=== PATIENT | female | born 1955 | race Caucasian/White ===

== ENCOUNTER 2018-01-24 18:24 | Emergency (ER) | payer OTHER, SELFPAY ==
[~2018-01-24 18:24] MED LIST: ADV250 IH; CLON0.1T PO; FAMO-136 PO; LOSA50TA37 PO; METO2.5T2 PO; VERA120C2 PO
[2018-01-24 18:42] LABS: BASOPHILS % (AUTO) 0.6 % (0.0-5.0); EOSINOPHILS % (AUTO) 2.4 % (0.0-8.0); HEMATOCRIT 38.3 % (36-48); LYMPHOCYTES % (AUTO) 27.8 % (21.0-51.0); MEAN CORPUSCULAR HEMOGLOBIN 29.9 pg (27.0-33.0); MEAN CORPUSCULAR HGB CONC 34.4 g/dL (32.0-36.0); MEAN CORPUSCULAR VOLUME 86.8 fL (79-99); MONOCYTES % (AUTO) 7.4 % (3.0-13.0); NEUTROPHILS % (AUTO) 61.8 % (40.0-77.0); PLATELET COUNT (AUTO) 265 K/uL (130-400); RED BLOOD CELL COUNT(AUTO) 4.42 MIL/uL (4.00-5.50); RED CELL DISTRIBUTION WIDTH 14.8 % (11.0-15.5); WHITE BLOOD COUNT (AUTO) 8.6 K/uL (4.8-10.8)
[2018-01-24] MEDS ORDERED: ASPIRIN 325 MG TABLET ONE (18:43)
[2018-01-24 18:53] LABS: PARTIAL THROMBOPLASTIN TIME 27.6 SEC (26.3-35.5); POTASSIUM 3.9 mmol/L (3.5-5.1); PROTHROMBIN TIME 10.5 SEC (9.6-11.6)
[2018-01-24 19:07] LABS: ALBUMIN 3.7 g/dL (3.5-5.0); BILIRUBIN,TOTAL 0.6 mg/dL (0.2-1.0); CREATINE KINASE MB 0.6 ng/mL (0.5-3.6); TOTAL PROTEIN, SERUM 7.6 g/dL (6.0-8.3)
[2018-01-24] MEDS ORDERED: DIAZEPAM 5 MG TABLET ONE (19:45)
[2018-01-24] MEDS ORDERED: ACETAMINOPHEN EXTRA STRENGTH 500 MG TABLET ONE (20:15)
== END 2018-01-24 23:19 | disposition home or self-care (01) ==
LOC: EDH 18:24
DX: R07.9 Chest pain, unspecified (principal); I10 Essential (primary) hypertension; E78.5 Hyperlipidemia, unspecified; Z88.2 Allergy status to sulfonamides
CPT/HCPCS: 36415; 71045; 80053; 82550; 82553; 83880; 84484; 85025; 85610; 85730; 93005

== ENCOUNTER → 2020-10-02 | Outpatient (CLI) | payer OTHER ==
[~2020-10-02] MED LIST changes: -LOSA50TA37 PO; +LOSA50TA64 PO
== END | disposition home or self-care (01) ==
LOC: RAH 13:23
PROVIDERS: ATTEND Nurse Practitioner Adult Health
DX: Z12.31 Encounter for screening mammogram for malignant neoplasm of breast (principal)
CPT/HCPCS: 77067

== ENCOUNTER → 2020-11-07 | Outpatient (CLI) | payer OTHER | END | disposition home or self-care (01) | LOC: RAH 09:48 | PROVIDERS: ATTEND Nurse Practitioner Adult Health | DX: R92.2 Inconclusive mammogram (principal) | CPT/HCPCS: 76641; 77065 ==

== ENCOUNTER 2021-04-19 02:20 | Inpatient (IN) | payer OTHER ==
[~2021-04-19] VITALS: Ht 177.8 cm; Wt 125.7 kg
[2021-04-19] VITALS (7 sets, daily range): BP systolic 111–148; BP diastolic 64–77
[2021-04-19] MEDS ORDERED: IPRATROPIUM/ALBUTEROL SULFATE 3 ML SOLUTION IH ONE ×2 (03:00→03:01)
[2021-04-19] MEDS ORDERED: SOLU-MEDROL 125MG VIAL ONE (03:59)
[2021-04-19] MEDS ORDERED: CEFTRIAXONE 1G VIAL IVP ONE (04:00)
[2021-04-19] MEDS ORDERED: SOLU-MEDROL 125MG VIAL IVP ONE (04:00)
[2021-04-19] MEDS ORDERED: 0.9% NACL 250ML IVPB ONE (04:00)
[2021-04-19] MEDS ORDERED: AZITHROMYCIN 500MG+NS 250ML 250 ML IV ONE ×2 (04:00→04:30)
[2021-04-19] MEDS ORDERED: AZITHROMYCIN 500MG VIAL IVPB ONE (04:00)
[2021-04-19] MEDS ORDERED: CEFTRIAXONE 1G VIAL ONE (04:00)
[2021-04-19 04:19] LABS: ABG BASE EXCESS 1.4 mmol/L (-2.0-3.0); ABG HCO3 25.3 mmol/L (21.0-28.0); ABG OXYGEN SATURATION 94.5 % (95.0-99.0); ABG PCO2 38 mmHg (32-45)
[2021-04-19] MEDS ORDERED: DiphenhydrAMINE HCL 50 MG/ML VIAL IV ONE (04:30)
[2021-04-19] MEDS ORDERED: ALBUTEROL 0.083% 2.5 MG/3 ML INH IH ONE (04:30)
[2021-04-19 04:46] LABS: BASOPHILS % (AUTO) 0.3 % (0.0-5.0); EOSINOPHILS % (AUTO) 1.5 % (0.0-8.0); HEMATOCRIT 38.5 % (36-48); LYMPHOCYTES % (AUTO) 5.7 % (21.0-51.0); MEAN CORPUSCULAR HEMOGLOBIN 29.5 pg (27.0-33.0); MEAN CORPUSCULAR HGB CONC 32.7 g/dL (32.0-36.0); MEAN CORPUSCULAR VOLUME 90.2 fL (79-99); NEUTROPHILS % (AUTO) 90.1 % (40.0-77.0); PLATELET COUNT (AUTO) 288 K/uL (130-400); RED BLOOD CELL COUNT(AUTO) 4.27 MIL/uL (4.00-5.50); RED CELL DISTRIBUTION WIDTH 14.6 % (11.0-15.5); WHITE BLOOD COUNT (AUTO) 11.3 K/uL (4.8-10.8)
[2021-04-19 04:55] LABS: APPEARANCE,URINE Clear (CLEAR); BILIRUBIN,URINE Negative (NEGATIVE); COLOR,URINE Yellow (YELLOW); GLUCOSE, URINE (UA) Negative (NEGATIVE); KETONES,URINE Negative (NEGATIVE); LEUKOCYTE ESTERASE ,URINE Negative (NEGATIVE); NITRATE,URINE Negative (NEGATIVE); OCCULT BLOOD,URINE Negative (NEGATIVE); PROTEIN,URINE Negative (NEGATIVE); UROBILINOGEN,URINE 0.2 mg/dL (0.2-1.0)
[2021-04-19] MEDS ORDERED: OLME40TA18 PO (05:13)
[2021-04-19] MEDS ORDERED: VITAD50000 PO (05:13)
[2021-04-19] MEDS ORDERED: OMEP40CA21 PO (05:13)
[2021-04-19] MEDS ORDERED: HYDR-3420 PO (05:13)
[2021-04-19] MEDS ORDERED: PROG200C11 PO (05:13)
[2021-04-19] MEDS ORDERED: METO-408 PO (05:13)
[2021-04-19] MEDS ORDERED: BACL10TA PO (05:13)
[2021-04-19 05:22] LABS: ALBUMIN 3.4 g/dL (3.5-5.0); CREATININE 0.9 mg/dL (0.5-1.5); POTASSIUM 4.9 mmol/L (3.5-5.1)
[2021-04-19] MEDS ORDERED: ACETAMINOPHEN 325 MG TAB PO PRN ×2 (05:30)
[2021-04-19] MEDS ORDERED: ONDANSETRON 4MG INJ IV PRN (05:30)
[2021-04-19] MEDS: SOLU-MEDROL 125MG VIAL IVP SCH ×2 (05:30→12:37)
[2021-04-19] MEDS ORDERED: MAGNESIUM 2GM PREMIX 50ML 50 ML IV SCH (05:30)
[2021-04-19] MEDS ORDERED: 0.9% NACL 250ML IVPB SCH (05:30)
[2021-04-19 06:30] LABS: BILIRUBIN,TOTAL 0.5 mg/dL (0.2-1.0)
[2021-04-19] MEDS: IPRATROPIUM/ALBUTEROL SULFATE 3 ML SOLUTION IH SCH ×6 (06:33→22:00)
[2021-04-19 06:40] LABS: CRP QUANTITATIVE 26.7 mg/L (0.00-9.0); THYROID STIMULATING HORMONE 0.8 uIU/mL (0.36-3.74)
[2021-04-19] MEDS: NITROGLYCERIN 0.4 MG SL TAB SL PRN ×2 (08:25→11:03)
[2021-04-19] MEDS ORDERED: FAMOTIDINE 20MG TAB PO SCH (09:00)
[2021-04-19] MEDS: ENOXAPARIN SODIUM 40 MG/0.4 ML SYRINGE SQ SCH (09:43)
[2021-04-19] MEDS ORDERED: METOPROLOL SUCCINATE 50 MG TAB.SR.24H PO ONE (11:43)
[2021-04-19] MEDS: METOPROLOL SUCCINATE 50 MG TAB.SR.24H PO SCH (12:25)
[2021-04-19] MEDS: SOLU-MEDROL 40MG VIAL IVP SCH ×2 (15:12→21:51)
[2021-04-19] MEDS ORDERED: BACLOFEN 10 MG TABLET PO PRN (16:00)
[2021-04-19] MEDS ORDERED: CETIRIZINE HCL 5 MG TABLET PO SCH (18:00)
[2021-04-19] MEDS: BUDESONIDE 0.5 MG/2 ML INH IH SCH (20:56)
[2021-04-19] MEDS ORDERED: AZITHROMYCIN 500MG VIAL IVPB SCH (21:00)
[2021-04-19] MEDS ORDERED: TEMAZEPAM 15 MG CAPSULE PO SCH (21:00)
[2021-04-19] MEDS: AZITHROMYCIN 500MG+NS 250ML 250 ML IV SCH (21:51)
[2021-04-19] MEDS: CEFTRIAXONE 1G VIAL IV SCH (21:51)
[2021-04-20] MEDS: IPRATROPIUM/ALBUTEROL SULFATE 3 ML SOLUTION IH SCH ×4 (00:13→19:15)
[2021-04-20 00:36] VITALS: BP 130/56
[2021-04-20 03:59] VITALS: BP 136/63
[2021-04-20 04:15] LABS: BASOPHILS % (AUTO) 0.1 % (0.0-5.0); HEMATOCRIT 36.7 % (36-48); LYMPHOCYTES % (AUTO) 5.9 % (21.0-51.0); MEAN CORPUSCULAR HEMOGLOBIN 29.5 pg (27.0-33.0); MEAN CORPUSCULAR HGB CONC 32.7 g/dL (32.0-36.0); MEAN CORPUSCULAR VOLUME 90.2 fL (79-99); MONOCYTES % (AUTO) 3.6 % (3.0-13.0); NEUTROPHILS % (AUTO) 89.7 % (40.0-77.0); PLATELET COUNT (AUTO) 282 K/uL (130-400); RED BLOOD CELL COUNT(AUTO) 4.07 MIL/uL (4.00-5.50); RED CELL DISTRIBUTION WIDTH 14.9 % (11.0-15.5); WHITE BLOOD COUNT (AUTO) 12.4 K/uL (4.8-10.8)
[2021-04-20 04:37] LABS: BILIRUBIN,TOTAL 0.3 mg/dL (0.2-1.0); CREATININE 0.9 mg/dL (0.5-1.5); CRP QUANTITATIVE 29.7 mg/L (0.00-9.0); MAGNESIUM 1.8 mg/dL (1.80-2.40); POTASSIUM 4.4 mmol/L (3.5-5.1); TOTAL PROTEIN, SERUM 7.1 g/dL (6.0-8.3)
[2021-04-20] MEDS: BUDESONIDE 0.5 MG/2 ML INH IH SCH ×2 (06:26→19:15)
[2021-04-20 08:00] VITALS: BP 126/57
[2021-04-20] MEDS: SOLU-MEDROL 40MG VIAL IVP SCH ×3 (08:46→21:30)
[2021-04-20] MEDS: CETIRIZINE HCL 5 MG TABLET PO SCH (08:47)
[2021-04-20] MEDS: METOPROLOL SUCCINATE 50 MG TAB.SR.24H PO SCH (08:47)
[2021-04-20] MEDS: ENOXAPARIN SODIUM 40 MG/0.4 ML SYRINGE SQ SCH (08:48)
[2021-04-20 12:00] VITALS: BP 183/63
[2021-04-20 16:00] VITALS: BP 138/64
[2021-04-20 20:00] VITALS: BP 140/63
[2021-04-20] MEDS: AZITHROMYCIN 500MG+NS 250ML 250 ML IV SCH (21:30)
[2021-04-20] MEDS: CEFTRIAXONE 1G VIAL IV SCH (21:30)
[2021-04-20] MEDS: TRAZODONE HCL 50 MG TAB PO SCH (21:30)
[2021-04-21] VITALS: BP 127/60
[2021-04-21] MEDS: IPRATROPIUM/ALBUTEROL SULFATE 3 ML SOLUTION IH SCH ×4 (01:00→18:15)
[2021-04-21 04:00] VITALS: BP 130/69
[2021-04-21] MEDS: BUDESONIDE 0.5 MG/2 ML INH IH SCH ×2 (06:24→18:16)
[2021-04-21 08:00] VITALS: BP 124/47
[2021-04-21 08:36] LABS: BASOPHILS % (AUTO) 0.1 % (0.0-5.0); HEMATOCRIT 36.7 % (36-48); LYMPHOCYTES % (AUTO) 9.7 % (21.0-51.0); MEAN CORPUSCULAR HEMOGLOBIN 29.7 pg (27.0-33.0); MEAN CORPUSCULAR HGB CONC 32.2 g/dL (32.0-36.0); MEAN CORPUSCULAR VOLUME 92.4 fL (79-99); MONOCYTES % (AUTO) 2.6 % (3.0-13.0); NEUTROPHILS % (AUTO) 86.9 % (40.0-77.0); PLATELET COUNT (AUTO) 271 K/uL (130-400); RED BLOOD CELL COUNT(AUTO) 3.97 MIL/uL (4.00-5.50); RED CELL DISTRIBUTION WIDTH 15.2 % (11.0-15.5); WHITE BLOOD COUNT (AUTO) 11.5 K/uL (4.8-10.8)
[2021-04-21 08:59] LABS: ALBUMIN 2.9 g/dL (3.5-5.0); BILIRUBIN,TOTAL 0.3 mg/dL (0.2-1.0); CREATININE 0.9 mg/dL (0.5-1.5); POTASSIUM 4.3 mmol/L (3.5-5.1); TOTAL PROTEIN, SERUM 6.8 g/dL (6.0-8.3)
[2021-04-21] MEDS: SOLU-MEDROL 40MG VIAL IVP SCH ×3 (09:47→21:18)
[2021-04-21] MEDS: CETIRIZINE HCL 5 MG TABLET PO SCH (09:47)
[2021-04-21] MEDS: METOPROLOL SUCCINATE 50 MG TAB.SR.24H PO SCH (09:47)
[2021-04-21] MEDS: ENOXAPARIN SODIUM 40 MG/0.4 ML SYRINGE SQ SCH (09:48)
[2021-04-21 09:50] LABS: ABG BASE EXCESS 1.7 mmol/L (-2.0-3.0); ABG HCO3 26.2 mmol/L (21.0-28.0); ABG OXYGEN SATURATION 97.1 % (95.0-99.0); ABG PCO2 41 mmHg (32-45)
[2021-04-21 11:54] VITALS: BP 128/62
[2021-04-21 16:00] VITALS: BP 150/62
[2021-04-21] MEDS ORDERED: BENZONATATE 100 MG CAPSULE PO PRN (17:30)
[2021-04-21 20:24] VITALS: BP 131/77
[2021-04-21] MEDS: AZITHROMYCIN 500MG+NS 250ML 250 ML IV SCH (21:16)
[2021-04-21] MEDS: CEFTRIAXONE 1G VIAL IV SCH (21:16)
[2021-04-21] MEDS: TRAZODONE HCL 50 MG TAB PO SCH (21:16)
[2021-04-22] MEDS ORDERED: DiphenhydrAMINE HCL 50 MG/ML VIAL IV ONE
[2021-04-22] MEDS: IPRATROPIUM/ALBUTEROL SULFATE 3 ML SOLUTION IH SCH ×3 (00:20→11:15)
[2021-04-22 00:28] VITALS: BP 155/81
[2021-04-22 04:32] VITALS: BP 142/77
[2021-04-22 06:07] LABS: BASOPHILS % (AUTO) 0.1 % (0.0-5.0); HEMATOCRIT 36.8 % (36-48); LYMPHOCYTES % (AUTO) 13.1 % (21.0-51.0); MEAN CORPUSCULAR HEMOGLOBIN 29.6 pg (27.0-33.0); MEAN CORPUSCULAR HGB CONC 32.6 g/dL (32.0-36.0); MEAN CORPUSCULAR VOLUME 90.6 fL (79-99); MONOCYTES % (AUTO) 3.5 % (3.0-13.0); NEUTROPHILS % (AUTO) 81.7 % (40.0-77.0); PLATELET COUNT (AUTO) 289 K/uL (130-400); RED BLOOD CELL COUNT(AUTO) 4.06 MIL/uL (4.00-5.50); WHITE BLOOD COUNT (AUTO) 9.4 K/uL (4.8-10.8)
[2021-04-22 06:15] LABS: BILIRUBIN,TOTAL 0.3 mg/dL (0.2-1.0); CREATININE 0.9 mg/dL (0.5-1.5); POTASSIUM 4.4 mmol/L (3.5-5.1); TOTAL PROTEIN, SERUM 6.9 g/dL (6.0-8.3)
[2021-04-22] MEDS: BUDESONIDE 0.5 MG/2 ML INH IH SCH (06:44)
[2021-04-22 08:00] VITALS: BP 151/76
[2021-04-22] MEDS: CETIRIZINE HCL 5 MG TABLET PO SCH (09:29)
[2021-04-22] MEDS: METOPROLOL SUCCINATE 50 MG TAB.SR.24H PO SCH (09:29)
[2021-04-22] MEDS: SOLU-MEDROL 40MG VIAL IVP SCH (09:30)
[2021-04-22] MEDS: ENOXAPARIN SODIUM 40 MG/0.4 ML SYRINGE SQ SCH (09:30)
[2021-04-22 11:50] VITALS: BP 134/68
== END 2021-04-22 16:45 | disposition home or self-care (01) | DRG 189 ==
LOC: EDH 02:20 → OBSVTOIN 04:09 → INTOOBSV 04:09 → EDHIP 04:09 → 4DH 23:47
PROVIDERS: ADMIT Internal Medicine; ATTEND Internal Medicine
DX: J96.01 Acute respiratory failure with hypoxia (principal); J45.901 Unspecified asthma with (acute) exacerbation; R65.10 Systemic inflammatory response syndrome (SIRS) of non-infectious origin without acute organ dysfunction; I11.9 Hypertensive heart disease without heart failure; K21.9 Gastro-esophageal reflux disease without esophagitis; Z20.822 Contact with and (suspected) exposure to COVID-19; E03.9 Hypothyroidism, unspecified; E66.9 Obesity, unspecified; Z68.39 Body mass index [BMI] 39.0-39.9, adult; Z87.891 Personal history of nicotine dependence; Z87.01 Personal history of pneumonia (recurrent); Z88.2 Allergy status to sulfonamides; Z91.018 Allergy to other foods; Z90.710 Acquired absence of both cervix and uterus; Z83.3 Family history of diabetes mellitus; Z82.3 Family history of stroke; Z80.9 Family history of malignant neoplasm, unspecified; Z82.0 Family history of epilepsy and other diseases of the nervous system; Z82.5 Family history of asthma and other chronic lower respiratory diseases; Z82.49 Family history of ischemic heart disease and other diseases of the circulatory system
CPT/HCPCS: 36415; 36600; 71045; 80053; 81003; 82435; 82550; 82785; 82803; 82947; 83605; 83735; 83874; 83880; 84132; 84145; 84295; 84443; 84484; 85018; 85025; 85651; 86140; 87040; 87071; 87205; 87635; 87804; 93005; 94640; 94664; C9803; G0378; J0456; J0696; J1200; J1650; J2920; J2930; J3475

== ENCOUNTER → 2021-09-06 | Outpatient (CLI) | payer OTHER ==
[~2021-09-06] MED LIST changes: -ADV250 IH; +BACL10TA PO; -CLON0.1T PO; -FAMO-136 PO; +HYDR-3420 PO; -LOSA50TA64 PO; +METO-408 PO; -METO2.5T2 PO; +OLME40TA18 PO; +OMEP40CA21 PO; +PROG200C11 PO; -VERA120C2 PO; +VITAD50000 PO
== END | disposition home or self-care (01) ==
LOC: OIH 09:02
PROVIDERS: ATTEND Nurse Practitioner Adult Health
DX: Z13.6 Encounter for screening for cardiovascular disorders (principal); I25.10 Atherosclerotic heart disease of native coronary artery without angina pectoris; I51.5 Myocardial degeneration
CPT/HCPCS: 75571

== ENCOUNTER 2021-12-26 11:34 | Day surgery (SDC) | payer MEDICARE ==
[2021-12-25 10:12] LABS: APPEARANCE,URINE Clear (CLEAR); BILIRUBIN,URINE Negative (NEGATIVE); COLOR,URINE Dark Yellow (YELLOW); GLUCOSE, URINE (UA) Negative (NEGATIVE); KETONES,URINE Negative (NEGATIVE); LEUKOCYTE ESTERASE ,URINE Moderate (NEGATIVE); NITRATE,URINE Negative (NEGATIVE); OCCULT BLOOD,URINE Negative (NEGATIVE); PROTEIN,URINE Negative (NEGATIVE); UROBILINOGEN,URINE 0.2 mg/dL (0.2-1.0)
[2021-12-25 10:13] LABS: BASOPHILS % (AUTO) 0.4 % (0.0-5.0); EOSINOPHILS % (AUTO) 2.6 % (0.0-8.0); HEMATOCRIT 38.6 % (36-48); LYMPHOCYTES % (AUTO) 21.2 % (21.0-51.0); MEAN CORPUSCULAR HEMOGLOBIN 29.4 pg (27.0-33.0); MEAN CORPUSCULAR HGB CONC 31.6 g/dL (32.0-36.0); MONOCYTES % (AUTO) 8.3 % (3.0-13.0); NEUTROPHILS % (AUTO) 67.1 % (40.0-77.0); PLATELET COUNT (AUTO) 289 K/uL (130-400); RED BLOOD CELL COUNT(AUTO) 4.15 MIL/uL (4.00-5.50); RED CELL DISTRIBUTION WIDTH 14.2 % (11.0-15.5); WHITE BLOOD COUNT (AUTO) 7.3 K/uL (4.8-10.8)
[2021-12-25 10:23] LABS: CREATININE 0.8 mg/dL (0.5-1.5); POTASSIUM 3.9 mmol/L (3.5-5.1)
[2021-12-25 10:26] LABS: INR 0.94 (0.85-1.15); PROTHROMBIN TIME 10.3 SEC (9.6-11.6)
[2021-12-25 10:27] LABS: PARTIAL THROMBOPLASTIN TIME 28.6 SEC (26.3-35.5)
[2021-12-25 10:32] LABS: BACTERIA,URINE Rare /HPF (None Seen); RBC,URINE 0-1 /HPF (0-1); SQUAMOUS EPITHELIAL CELL,UR Rare /HPF (0-2); WBC,URINE 0-1 /HPF (0-1)
[2021-12-25 14:30] VITALS: BP 172/76
[2021-12-26] VITALS (8 sets, daily range): BP systolic 133–172; BP diastolic 51–76
[~2021-12-26] VITALS: Ht 177.8 cm; Wt 131.4 kg
[~2021-12-26 11:34] MED LIST changes: +0.9% NACL 500ML IV.SOLN 500 ML IV SCH; +ALBU0.63 IH; -BACL10TA PO; +Cholecalciferol PO; +FISH1CAP50 PO; +FLUT1BLS15 IH; +MAGNESIUM PO; +METO-391 PO; -METO-408 PO; +METO2.5T2 PO; -OLME40TA18 PO; -PROG200C11 PO; +SOYB50CA PO; -VITAD50000 PO; +VITAMIN B12 INJ
[2021-12-26] MEDS ORDERED: 0.9%NACL 1000ML 1,000 ML IV ONE (12:40)
[2021-12-26] MEDS ORDERED: HEPARIN 10,000 UNIT/10ML (1,000 UNIT/ML) VIAL ONE (15:00)
[2021-12-26] MEDS ORDERED: NITROGLYCERIN 50MG VIAL ONE (15:00)
[2021-12-26] MEDS ORDERED: LIDOCAINE HCL 1% 20 ML VIAL ONE (15:00)
[2021-12-26] MEDS ORDERED: BIVALIRUDIN 250 MG/VIAL IV ONE (15:00)
[2021-12-26] MEDS ORDERED: MIDAZOLAM HCL 1 MG/ML 2ML VIAL ONE (15:01)
[2021-12-26] MEDS ORDERED: FENTANYL CITRATE PF 50 MCG/1 ML 2ML VIAL ONE (15:01)
[2021-12-26] MEDS ORDERED: IOHEXOL 350 MG/ML 100ML INFUS..BTL IV ONE (15:01)
[2021-12-26] MEDS ORDERED: NITROGLYCERIN 0.4 MG SL TAB SL ONE (15:35)
== END 2021-12-26 18:56 | disposition home or self-care (01) ==
LOC: DAH 11:34
PROVIDERS: ATTEND Internal Medicine Cardiovascular Disease
DX: I25.119 Atherosclerotic heart disease of native coronary artery with unspecified angina pectoris (principal); I71.9 Aortic aneurysm of unspecified site, without rupture; I10 Essential (primary) hypertension; J45.909 Unspecified asthma, uncomplicated; G47.30 Sleep apnea, unspecified; Z86.16 Personal history of COVID-19; Z90.710 Acquired absence of both cervix and uterus; Z90.49 Acquired absence of other specified parts of digestive tract; Z98.890 Other specified postprocedural states; Z82.49 Family history of ischemic heart disease and other diseases of the circulatory system; Z87.891 Personal history of nicotine dependence; Z79.01 Long term (current) use of anticoagulants; Z79.899 Other long term (current) drug therapy
CPT/HCPCS: 36415; 71045; 80048; 81001; 85025; 85610; 85730; 87088; 93005; 93458; A4215; A4216; A4221; A4222; A4223 ×3; A4606; A4663; C1760; C1887; C1894; J1644; J2250; J3010; J3490; J7030; Q9965 ×2; Q9967; 99156; 99157; J0583

== ENCOUNTER 2022-03-26 20:49 | Observation (INO) | payer MEDICARE ==
[~2022-03-26] VITALS: Ht 177.8 cm; Wt 128.4 kg
[~2022-03-26 20:49] MED LIST changes: -0.9% NACL 500ML IV.SOLN 500 ML IV SCH; +APIX5TAB PO; +CHOL2400 MC; -Cholecalciferol PO; +FAMO20TA8 PO; -FISH1CAP50 PO; -HYDR-3420 PO; -MAGNESIUM PO; -METO-391 PO; +OLME40TA18 PO; -OMEP40CA21 PO; -SOYB50CA PO; -VITAMIN B12 INJ; +[UNRECOGNIZED DRUG - OTHER]; +[UNRECOGNIZED DRUG - OTHER]
[2022-03-26] MEDS ORDERED: 0.9% NACL 500ML IV.SOLN 500 ML IV ONE (22:30)
[2022-03-26] MEDS ORDERED: MORPHINE 4 MG SYG IVP ONE (22:30)
[2022-03-26] MEDS ORDERED: ONDANSETRON 4MG INJ IVP ONE (22:30)
[2022-03-26 22:48] LABS: BASOPHILS % (AUTO) 0.4 % (0.0-5.0); EOSINOPHILS % (AUTO) 3.1 % (0.0-8.0); HEMATOCRIT 33.3 % (36-48); LYMPHOCYTES % (AUTO) 17.6 % (21.0-51.0); MEAN CORPUSCULAR HEMOGLOBIN 27.9 pg (27.0-33.0); MEAN CORPUSCULAR HGB CONC 31.2 g/dL (32.0-36.0); MEAN CORPUSCULAR VOLUME 89.3 fL (79-99); MONOCYTES % (AUTO) 10.4 % (3.0-13.0); NEUTROPHILS % (AUTO) 68.2 % (40.0-77.0); PLATELET COUNT (AUTO) 346 K/uL (130-400); RED BLOOD CELL COUNT(AUTO) 3.73 MIL/uL (4.00-5.50); RED CELL DISTRIBUTION WIDTH 15.4 % (11.0-15.5); WHITE BLOOD COUNT (AUTO) 9.8 K/uL (4.8-10.8)
[2022-03-26 22:58] LABS: APPEARANCE,URINE CLEAR (CLEAR); BILIRUBIN,URINE NEGATIVE (NEGATIVE); COLOR,URINE YELLOW (YELLOW); GLUCOSE, URINE (UA) NEGATIVE (NEGATIVE); KETONES,URINE NEGATIVE (NEGATIVE); LEUKOCYTE ESTERASE ,URINE NEGATIVE (NEGATIVE); NITRATE,URINE NEGATIVE (NEGATIVE); OCCULT BLOOD,URINE NEGATIVE (NEGATIVE); PH,URINE 5.5 (5.0-8.0); PROTEIN,URINE NEGATIVE (NEGATIVE); UROBILINOGEN,URINE 0.2 mg/dL (0.2-1.0)
[2022-03-26 22:59] LABS: CREATININE 0.9 mg/dL (0.5-1.5); POTASSIUM 3.2 mmol/L (3.5-5.1)
[2022-03-26 23:00] LABS: INR 0.95 (0.85-1.15); PROTHROMBIN TIME 10.4 SEC (9.6-11.6)
[2022-03-26 23:01] LABS: PARTIAL THROMBOPLASTIN TIME 25.6 SEC (26.3-35.5)
[2022-03-26 23:04] LABS: TOTAL PROTEIN, SERUM 7.3 g/dL (6.0-8.3)
[2022-03-26] MEDS ORDERED: IOHEXOL 350 MG/ML 100ML INFUS..BTL IV ONE (23:17)
[2022-03-26] MEDS ORDERED: ASPIRIN 325MG EC TAB PO ONE (23:30)
[2022-03-27] MEDS ORDERED: ONDANSETRON 4MG INJ IV PRN (01:00)
[2022-03-27] MEDS ORDERED: ACETAMINOPHEN 325 MG TAB PO PRN ×2 (01:00)
[2022-03-27] MEDS ORDERED: CEFTRIAXONE 1G VIAL IV SCH (01:00)
[2022-03-27] MEDS ORDERED: MORPHINE 2 MG SYG IV PRN (01:00)
[2022-03-27] MEDS ORDERED: MORPHINE 4 MG SYG IV PRN (01:00)
[2022-03-27] MEDS: DOXYCYCLINE 100MG+NS 250ML 250 ML IV SCH ×2 (02:44→12:10)
[2022-03-27] MEDS: NITROGLYCERIN 1GM OINT 1 INCH/1GM TD SCH ×3 (02:44→15:10)
[2022-03-27] MEDS ORDERED: KCL 20 MEQ ERTAB PO PRN (03:00)
[2022-03-27] MEDS ORDERED: LIDOCAINE HCL-MPF 1% 2ML VIAL IV PRN (03:00)
[2022-03-27] MEDS ORDERED: POTASSIUM CHLORIDE 20MEQ/100ML 100 ML IV PRN (03:00)
[2022-03-27 03:55] VITALS: BP 135/69
[2022-03-27] MEDS ORDERED: AMIO200T68 PO (04:51)
[2022-03-27] MEDS ORDERED: METO50TA18 PO (04:51)
[2022-03-27] MEDS ORDERED: OMEP40CA21 PO (04:52)
[2022-03-27] MEDS ORDERED: ACET-2743 PO (04:53)
[2022-03-27] MEDS ORDERED: OMEGA 3 (04:55)
[2022-03-27] MEDS ORDERED: PRESERVISION (04:56)
[2022-03-27] MEDS ORDERED: MAGNESIUM GLYCINATE (04:56)
[2022-03-27] MEDS ORDERED: METO2.5T2 PO (04:59)
[2022-03-27 08:50] VITALS: BP 116/56
[2022-03-27] MEDS ORDERED: ENOXAPARIN SODIUM 40 MG/0.4 ML SYRINGE SQ SCH (09:00)
[2022-03-27] MEDS ORDERED: ASPIRIN 81MG CHEW TAB PO SCH (09:00)
[2022-03-27] MEDS ORDERED: FAMOTIDINE 20MG VIAL IV SCH (09:00)
[2022-03-27 12:00] VITALS: BP 107/60
[2022-03-27] MEDS: POTASSIUM CHLORIDE 10% ELIXIR 20 MEQ/15 ML UDCUP PO PRN ×2 (12:10→14:31)
[2022-03-27] MEDS ORDERED: MAGNESIUM CITRATE 296 ML SOLUTION PO SCH (14:00)
[2022-03-27] MEDS ORDERED: ACETAMINOPHEN 500 MG TABLET PO PRN (14:30)
[2022-03-27] MEDS ORDERED: METOLAZONE 2.5 MG TABLET ONE (15:16)
[2022-03-27] MEDS ORDERED: AMIODARONE 200 MG TABLET PO ONE (15:16)
[2022-03-27] MEDS ORDERED: AMIODARONE 200 MG TABLET PO SCH (15:30)
[2022-03-27] MEDS ORDERED: METOLAZONE 2.5 MG TABLET PO SCH (15:30)
[2022-03-27] MEDS ORDERED: METOPROLOL TARTRATE 50 MG TAB PO SCH (15:30)
[2022-03-27 16:06] VITALS: BP 125/60
[2022-03-28] MEDS ORDERED: VIT D3 5000 UNIT PO SCH (09:00)
[2022-03-28] MEDS ORDERED: **HM** TRELEGY ELLIPTA IH SCH (09:00)
[2022-03-28] MEDS ORDERED: PANTOPRAZOLE 40 MG TAB DR PO SCH (09:00)
[2022-03-28] MEDS ORDERED: AMIODARONE 200 MG TABLET PO SCH (09:00)
[2022-03-28] MEDS ORDERED: METOPROLOL TARTRATE 50 MG TAB PO SCH (09:00)
[2022-03-29] MEDS ORDERED: METOLAZONE 2.5 MG TABLET PO SCH (09:00)
== END 2022-03-27 17:56 | disposition home or self-care (01) ==
LOC: EDH 20:49 → EDHIP 03-27 00:56 → INTOOBSV 03-27 00:56 → 2DH 03-27 03:49
PROVIDERS: ADMIT Internal Medicine; ATTEND Internal Medicine
DX: R79.89 Other specified abnormal findings of blood chemistry (principal); Z20.822 Contact with and (suspected) exposure to COVID-19; E87.6 Hypokalemia; K59.00 Constipation, unspecified; E78.00 Pure hypercholesterolemia, unspecified; R07.89 Other chest pain; I10 Essential (primary) hypertension; J45.909 Unspecified asthma, uncomplicated; E66.9 Obesity, unspecified; Z90.710 Acquired absence of both cervix and uterus; Z95.1 Presence of aortocoronary bypass graft; Z79.899 Other long term (current) drug therapy
CPT/HCPCS: 96375 ×2; 99285; 84484 ×5; 80053; 85025; 85610; 85730; 81003; 36415 ×2; 74174; 71275; 93005; 96365; 96366; 87040 ×2; 87804 ×2; 83605; 87635; 84145; J7040; J2405; J2270; Q9967; G0378 ×3; J3490 ×3; J0696; J1650

== ENCOUNTER → 2022-11-06 | Outpatient (CLI) | payer OTHER ==
[~2022-11-06] MED LIST changes: +ACET-2743 PO; -ALBU0.63 IH; +AMIO200T68 PO; -APIX5TAB PO; -FAMO20TA8 PO; +MAGNESIUM GLYCINATE; +METO50TA18 PO; -OLME40TA18 PO; +OMEGA 3; +OMEP40CA21 PO; +PRESERVISION; -[UNRECOGNIZED DRUG - OTHER]; -[UNRECOGNIZED DRUG - OTHER]
[2022-11-06 12:10] LABS: CREATININE 0.9 mg/dL (0.5-1.5); MAGNESIUM 1.7 mg/dL (1.80-2.40); POTASSIUM 3.9 mmol/L (3.5-5.1)
== END | disposition home or self-care (01) ==
LOC: LAB 10:11
PROVIDERS: ATTEND Internal Medicine Cardiovascular Disease
DX: I10 Essential (primary) hypertension (principal); R94.31 Abnormal electrocardiogram [ECG] [EKG]
CPT/HCPCS: 36415; 80048; 83735

== ENCOUNTER → 2022-12-12 | Outpatient (CLI) | payer MEDICARE, OTHER | END | disposition home or self-care (01) | LOC: RAH 14:49 | PROVIDERS: ATTEND Nurse Practitioner Adult Health | DX: Z12.31 Encounter for screening mammogram for malignant neoplasm of breast (principal) | CPT/HCPCS: 77067 ==

== ENCOUNTER → 2024-11-23 | Outpatient (CLI) | payer MEDICARE ==
[~2024-11-23] MED LIST changes: +BENZ-226 PO; +DOXY100T2 PO; +FLUT15.845 NS; +IPRNEB IH; +LOSA-417 PO; +MAGN400T53 PO; +MAGN400T7 PO; +METO-391 PO; +MONT-46 PO; +PRED20B PO; +SPIR25TA6 PO
[2024-11-23 16:42] LABS: ALBUMIN 3.5 g/dL (3.5-5.0); BILIRUBIN,TOTAL 0.4 mg/dL (0.2-1.0); CREATININE 0.9 mg/dL (0.5-1.0); POTASSIUM 4.2 mmol/L (3.5-5.1); TOTAL PROTEIN, SERUM 7.3 g/dL (6.0-8.3)
== END | disposition home or self-care (01) ==
LOC: LAB 15:52
PROVIDERS: ATTEND Internal Medicine Cardiovascular Disease
DX: I87.2 Venous insufficiency (chronic) (peripheral) (principal)
CPT/HCPCS: 36415; 80053

== ENCOUNTER → 2024-12-02 | Outpatient (CLI) | payer MEDICARE ==
[~2024-12-02] MED LIST changes: +IOHEXOL-350 75 ML VIAL IV ONE
--- NOTE | 2024-12-02 17:32 | HMCIMG ---
CT ANGIO CHEST HISTORY: Abdominal aortic aneurysm COMPARISON: None TECHNIQUE: CT angiography of the chest was performed. The study was performed using angiographic technique with maximum intensity projection reconstruction images. Patient was given cc of Omnipaque through intravenous route. FINDINGS: No CT evidence of filling defect is seen to suggest pulmonary embolus. No CT evidence of aortic dissection is seen. Ascending thoracic aorta measures 3.8 x 3.4 cm. Mild bilateral pulmonary infiltrates are seen. Pulmonary artery calcifications are seen.. No CT evidence of pleural effusion or pericardial effusion is seen. The heart is enlarged. No evidence of adrenal mass is seen. Degenerative changes of the spine are noted. IMPRESSION: 1. No CT evidence of acute pulmonary embolus or aortic dissection is seen. Ascending thoracic aorta measures 3.8 x 3.4 cm. Mild bilateral pulmonary infiltrates. CT was performed with one or more following dose reduction techniques: automated exposure control, adjustment of the mA and kv according to patient's size, or use of a iterative reconstruction technique.
== END | disposition home or self-care (01) ==
LOC: RAH 11:10
PROVIDERS: ATTEND Internal Medicine Cardiovascular Disease
DX: J98.4 Other disorders of lung (principal); I71.40 Abdominal aortic aneurysm, without rupture, unspecified
CPT/HCPCS: 71275; Q9967